=== PATIENT | female | born 1990 | race Caucasian/White ===

== ENCOUNTER 2018-06-05 14:16 | Emergency (ER) | payer MEDICAID ==
[~2018-06-05] VITALS: Ht 175.3 cm; Wt 145.4 kg
[2018-06-05] MEDS ORDERED: LORazepam 1 MG tablet PO ONE (15:05)
[2018-06-05] MEDS ORDERED: LORazepam 2 mg/ml vial IM ONE (15:05)
[2018-06-05 15:50] LABS: BASOPHILS # (AUTO) 0.1 X10'3 (0-0.2); BASOPHILS % (AUTO) 0.5 % (0-1); EOSINOPHILS # (AUTO) 0.7 X10'3 (0-0.9); EOSINOPHILS % (AUTO) 6.5 % (0-6); HEMOGLOBIN 14.7 g/dl (12.0-16.0); LYMPHOCYTES # (AUTO) 2.5 X10'3 (1.1-4.8); LYMPHOCYTES % (AUTO) 23.1 % (21-51); MEAN CORPUSCULAR HEMOGLOBIN 28.8 PG (27.0-31.0); MEAN CORPUSCULAR HGB CONC 34.2 % (33.0-36.5); MEAN CORPUSCULAR VOLUME 84.2 FL (78-98); MEAN PLATELET VOLUME 7.8 FL (7.4-10.4); MONOCYTES # (AUTO) 0.7 X10'3 (0-0.9); MONOCYTES % (AUTO) 6.3 % (2-12); NEUTROPHILS # (AUTO) 6.8 X10'3 (1.8-7.7); NEUTROPHILS % (AUTO) 63.6 % (42-75); PLATELET COUNT 274 X10'3 (140-440); RED CELL DISTRIBUTION WIDTH 13.8 % (11.5-14.5); WHITE BLOOD COUNT 10.7 X10'3 (4.5-11.0)
[2018-06-05 15:51] LABS: ALANINE AMINOTRANSFERASE 37 U/L (12-78); ALBUMIN 3.7 G/DL (3.4-5.0); ALBUMIN/GLOBULIN RATIO 1.1 (1.1-1.5); ALKALINE PHOSPHATASE 99 IU/L (46-116); ANION GAP 8 (8-16); BILIRUBIN,TOTAL 0.3 MG/DL (0.1-1.0); BLOOD UREA NITROGEN 13 MG/DL (7-18); BUN/CREATININE RATIO 15.1 (6.6-38.0); CALCIUM 8.5 MG/DL (8.5-10.1); CHLORIDE 105 MMOL/L (99-107); CREATININE 0.86 MG/DL (0.40-0.90); ETHANOL 0.013 GM/DL (0.0-0.010); SODIUM 139 MMOL/L (135-145); TOTAL CARBON DIOXIDE 26.5 MMOL/L (24-32); TOTAL PROTEIN 7.2 G/DL (6.4-8.2); eGFR 79 ML/MIN
[2018-06-05 15:54] LABS: GLUCOSE 96 MG/DL (70-104); POTASSIUM 4.1 MMOL/L (3.5-5.1)
[2018-06-05 16:00] LABS: CLARITY,URINE SLIGHTLY CLOUDY (Clear); COLOR,URINE YELLOW (Yellow); GLUCOSE, URINE NEGATIVE (Neg); KETONES,URINE NEGATIVE (Neg); LEUKOCYTE ESTERASE ,URINE NEGATIVE (Neg); NITRITES, URINE NEGATIVE (Neg); OCCULT BLOOD,URINE NEGATIVE (Neg); PH,URINE 5.5 (4.8-8.0); PROTEIN,URINE NEGATIVE (Neg); URINE HCG NEGATIVE (NEG); UROBILINOGEN,URINE 0.2 E.U/dL (0.2-1.0)
[2018-06-05 16:01] LABS: UA COLLECTION TYPE CLN CATCH MIDSTREAM
[2018-06-05 16:02] LABS: ASPARTATE AMINO TRANSFERASE 16 U/L (10-37)
[2018-06-05 16:07] LABS: BACTERIA,URINE 1+ /HPF (Neg); MUCUS STRANDS MODERATE /LPF (Neg); SQUAMOUS EPITHELIAL CELL,UR MODERATE /LPF (FEW)
[2018-06-05 16:08] LABS: RBC,URINE 0-2 /HPF (0-2); WBC,URINE 0-4 /HPF (0-4)
[2018-06-05 16:11] LABS: URINE AMPHETAMINE SCREEN NEGATIVE (Neg); URINE BARBITUATE SCREEN NEGATIVE (Neg); URINE BENZODIAZEPINES SCREEN NEGATIVE (Neg); URINE CANNABINOID SCREEN POSITIVE (Neg); URINE COCAINE SCREEN NEGATIVE (Neg); URINE METHADONE SCREEN NEGATIVE (Neg); URINE OPIATE SCREEN NEGATIVE (Neg); URINE PHENCYCLIDINE SCREEN NEGATIVE (Neg)
[2018-06-06 06:13] VITALS: BP 142/76
[2018-06-06] MEDS ORDERED: ESCI10TA PO (06:41)
[2018-06-06] MEDS ORDERED: METF500T PO (07:38)
[2018-06-06] MEDS ORDERED: PROP10TA10 PO (07:45)
[2018-06-06] MEDS ORDERED: LORA1TAB PO (07:45)
[2018-06-06] MEDS ORDERED: EZET10TA14 PO (07:45)
[2018-06-06] MEDS ORDERED: metFORMIN 500mg tablet PO SCH (11:00)
[2018-06-06] MEDS ORDERED: citalopram 20mg tablet PO SCH (11:00)
[2018-06-06] MEDS ORDERED: ezetimibe 10mg tablet PO SCH (12:00)
[2018-06-06] MEDS ORDERED: propranolol 10mg tablet PO SCH (13:00)
[2018-06-06] MEDS ORDERED: LORazepam 1 MG tablet PO PRN (20:00)
== END 2018-06-06 11:50 ==
LOC: ER 14:16
DX: F32.9 Major depressive disorder, single episode, unspecified (principal); F43.10 Post-traumatic stress disorder, unspecified; F99 Mental disorder, not otherwise specified; R45.851 Suicidal ideations; F41.9 Anxiety disorder, unspecified; Z88.8 Allergy status to other drugs, medicaments and biological substances; Z91.018 Allergy to other foods; Z79.899 Other long term (current) drug therapy; X58.XXXA Exposure to other specified factors, initial encounter; Y93.89 Activity, other specified; Y92.89 Other specified places as the place of occurrence of the external cause; Y99.8 Other external cause status
CPT/HCPCS: 36415; 80053; 80305; 80320; 81001; 81025; 84443; 85025; 99285